=== PATIENT | male | born 2000 | race Caucasian/White ===

== ENCOUNTER 2023-11-20 11:58 | Day surgery (SDC) | payer BC ==
[~2023-11-20] VITALS: Ht 167.6 cm; Wt 65.6 kg
[~2023-11-20 11:58] MED LIST: LR 1,000 ML IV SCH
--- NOTE | 2023-11-20 12:56 | NUR ---
PATIENT ADMITTED TO ROOM 2 AMBULATORY AND IS ALERT AND ORIENTED. VOICES UNDERSTANDING OF SURGERY AND ANESTHESIA. CONSENTS SIGNED. IVF STARTED. RESTING ON CART. CALL LIGHT IN REACH. PARENTS IN THE ROOM. PATIENT HAS POOR BODY HYGINE. ANSWERS QUESTIONS APPROPRIATELY.
[2023-11-20 13:01] VITALS: BP 120/81; PULSE 77; TEMP 97.8
[2023-11-20] MEDS ORDERED: dexAMETHasone 10 MG/ML VIAL ONE (13:33)
[2023-11-20] MEDS ORDERED: Ondansetron 4 MG/2 ML VIAL ONE (13:33)
[2023-11-20] MEDS ORDERED: Rocuronium 50 MG/5 ML Multi-Dose VIAL ONE (13:33)
[2023-11-20] MEDS ORDERED: Lidocaine PF 2% (20 MG/ML) 5 ML VIAL ONE (13:33)
[2023-11-20] MEDS ORDERED: fentaNYL 50 MCG/ML 2 ML VIAL ONE (13:33)
[2023-11-20] MEDS ORDERED: Topical Skin Adhesive 1 EACH (1 ML) TOP ONE (14:45)
[2023-11-20] MEDS ORDERED: Ketorolac 30 MG/ML VIAL ONE (14:46)
[2023-11-20] MEDS ORDERED: Ketorolac 15 MG/ML VIAL IV PRN (15:15)
[2023-11-20] MEDS ORDERED: oxyCODONE/Acetaminophen 5-325 MG TAB PO PRN (15:15)
[2023-11-20] MEDS ORDERED: HYDROmorphone 1 MG/1 ML SYRINGE [PACU/SDC ONLY] IV PRN (15:30)
[2023-11-20 15:40] VITALS: BP 108/75; PULSE 80
--- NOTE | 2023-11-20 15:40 | NUR ---
RETURNS TO ROOM 2 PER CART AND IS ALERT AND ORIENTED X3. IVF INFUSING. DENIES ANY PAIN OR NAUSEA. INCISIONS ON ABDOMEN X2 CLEAN AND DRY WITH WOUND EDGES WELL APPROXIMATED. PARENTS IN ROOM. TAKING ORANGE JUICE AND EATING CRACKERS. DENIES PAIN OR NAUSEA.
[2023-11-20 15:49] VITALS: TEMP 97.1
[2023-11-20 15:55] VITALS: BP 104/67; PULSE 80
--- NOTE | 2023-11-20 15:55 | NUR ---
TOLERATES SNACK AND DENIES PAIN OR NAUSEA. PARENTS REMAIN IN THE ROOM.
[2023-11-20 16:10] VITALS: BP 103/62; PULSE 77
--- NOTE | 2023-11-20 16:10 | NUR ---
CONTINUES TO DENY NEED FOR PAIN MEDICATION. STATES IT FEELS SORE BUT NO PAIN AND DOES NOT WANT ANY PAIN MEDICATION. DENIES NAUSEA.
--- NOTE | 2023-11-20 16:15 | NUR ---
UP WALKING IN THE HALLWAY AND TOLERATES ACTIVITY WELL. GAIT STEADY.
--- NOTE | 2023-11-20 16:30 | NUR ---
PATIENT IS DRESSED AND CONTINUES TO DENY NEED FOR PAIN MEDICATIONS AND DENIES NAUSEA.
--- NOTE | 2023-11-20 16:40 | NUR ---
DISCHARGE INSTRUCTIONS GIVEN AND PATIENT VOICES UNDERSTANDING OF THESE. INSTRUCTED ON TAKING TYLENOL OR MOTRIN FOR PAIN NEEDED.
--- NOTE | 2023-11-20 16:47 | NUR ---
DISMISSED TO HOME DRIVEN BY PARENTS IN PRIVATE VEHICLE. DISCHARE INSTRUCTIONS IN HAND.
== END 2023-11-20 16:47 | disposition home or self-care (01) ==
LOC: SDCO 11:58
DX: Q53.111 Unilateral intraabdominal testis (principal)
CPT/HCPCS: J0690; J1100; J1885; J2405; J2704; J3010; J7120